=== PATIENT | male | born 1975 | race Caucasian/White ===

== ENCOUNTER → 2023-06-19 | Emergency (ER) | payer OTHER ==
[~2023-06-19] MED LIST: FOLIC ACID 5 MG/ML VIAL ONE; LABETALOL HCL 100 MG/20 ML ONE; NA CHLORIDE 0.9% 250 ML ONE; NICARDIPINE HCL 25 MG/10 ML IV ONE; TENECTEPLASE 50 MG/10 ML VIAL IV ONE
--- NOTE | 2023-06-19 21:04 | RAD REPORT ---
EXAM DESCRIPTION: CT - Ct Stroke Brain Wo Cont - 06/19/2023 8:58 pm CLINICAL HISTORY: Left-sided weakness COMPARISON: none TECHNIQUE: Computed axial tomography of the head was obtained. All CT scans are performed using dose optimization technique as appropriate and may include automated exposure control or mA/KV adjustment according to patient size. FINDINGS: An intracranial bleed is not seen . The ventricles are normal in caliber. No extra-axial fluid collection is noted. No significant hypodensity within the brain. 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 Mild to moderate chronic sinusitis IMPRESSION: 14 millimeter choroid plexus cyst left lateral ventricle No acute intracranial abnormality is seen. If patient's symptoms persist MRI of the brain would be r ecommended Dr Olmedo of the emergency room was notified at 8:40 p.m. June 19, 2023
--- NOTE | 2023-06-19 21:16 | RAD REPORT ---
EXAM DESCRIPTION: Fani Angio06/19/2023 8:43 pm CLINICAL HISTORY: Left-sided weakness. Facial droop TECHNIQUE: 100 cc Isovue [address] angiogram of the neck was obtained. 3D MIPS reconstruction performed. All CT scans are performed using dose optimization technique as appropriate and may include automated exposure control or mA/KV adjustment according to patient size. FINDINGS: No significant plaque within common carotid, internal carotid and external carotid arterie s bilaterally Vertebral arteries unremarkable No dissection is seen. No high-grade stenosis IMPRESSION: No significant abnormality is displayed [place] Mild stenosis 0 to 49 % Moderate stenosis 50-69% Severe stenosis 70-99%
[2023-06-19 21:19] LABS: Absolute Lymphocytes (CBC) 2.1 K/uL (0.7-4.9); Lymphocytes % 18.7 % (15.3-44.8); MCV 85.4 fL (80-100); MPV 9.3 fL (7.6-11.3); Platelets 254 thou/uL (152-406); RBC Red Blood Cell Count 5.15 M/uL (4.33-5.43)
--- NOTE | 2023-06-19 21:20 | RAD REPORT ---
EXAM DESCRIPTION: CTHead angio06/19/2023 8:43 pm CLINICAL HISTORY: Left-sided weakness. Facial droop COMPARISON: None TECHNIQUE: 100 cc Isovue [address] angiogram of the head was obtained. 3D MIPS reconstruction performed. All CT scans are performed using dose optimization technique as appropriate and may include automated exposure control or mA/KV adjustment according to patient size. FINDINGS: The basilar, anterior cerebral, middle cerebral and posterior cerebral arteries do not dem onstrate a significant stenosis origin posterior cerebral arteries An aneurysm is not seen No large vessel occlusion IMPRESSION: No significant abnormality is displayed
[2023-06-19 21:23] LABS: Protime INR 1.08
[2023-06-19 21:29] LABS: Potassium 3.3 mEq/L (3.5-5.1); Troponin High Sensitivity 11.4 pg/mL (<58.9)
--- NOTE | 2023-06-19 21:54 | EDPHYS ---
Physician Documentation [facility] Name: Joe Davis Age: 47 yrs Sex: Male : 1975 Arrival Date: 06/19/2023 Time: 20:24 Bed 2 Private MD: ED Physician Emmanuel Olmedo HPI: 06/19 20:28 This 47 yrs old Male presents to ER via Unassigned with complaints of weakness. rn 20:28 The patient presents to the emergency department with weakness of the left upper rn extremity, left lower extremity. Onset: The symptoms/episode began/occurred at 19:00. 21:47 Context: occurred at home, occurred while the patient was at rest. Associated signs and rn symptoms: Pertinent positives: This patient does not have any pertinent positives. Pertinent negatives: fever, headache, seizure, syncope, loss of vision. Severity of symptoms: At their worst the symptoms were moderate in the emergency department the symptoms are unchanged. The patient has not experienced similar symptoms in the past. Last known normal was 7 PM. Abruptly at 7 PM started to feel left-sided paralysis. Unable to move left arm or left leg at all. Left side of face also felt different for him. Does not take any medication but also has not been to a doctor. No head injury or trauma. States symptoms temporarily improved and then came back shortly after.. Historical: - Allergies: 21:20 No Known Allergies; km8 - Home Meds: 21:20 None [Active]; km8 - PMHx: 21:20 None; km8 - PSHx: 21:20 None; km8 - Immunization history:: Client reports having NOT received the Covid vaccine. Flu vaccine status is unknown. - Social history:: Smoking status: Patient reports the use of cigarette tobacco products, smokes one-half pack cigarettes per day. - Family history:: not pertinent. - Hospitalizations: : No recent hospitalization is reported. ROS: 21:47 Constitutional: Negative for fever, chills, and weight loss, Neck: Negative for injury, rn pain, and swelling, Cardiovascular: Negative for chest pain, palpitations, and edema, Respiratory: Negative for shortness of breath, cough, wheezing, and pleuritic chest pain, Abdomen/GI: Negative for abdominal pain, nausea, vomiting, diarrhea, and constipation, Back: Negative for injury and pain, MS/Extremity: Negative for injury and deformity, Skin: Negative for injury, rash, and discoloration, Neuro: Positive for left-sided hemiparesis Exam: 21:47 Constitutional: This is a well developed, well nourished patient who is awake, alert, rn and in no acute distress. Head/Face: Normocephalic, atraumatic. Eyes: Pupils equal round and reactive to light, extra-ocular motions intact. Cardiovascular: Tachycardic, regular. No pulse deficits. Respiratory: No increased work of breathing, no retractions or nasal flaring. Abdomen/GI: Soft, non-tender Skin: Warm, dry Neuro: Awake and alert, GCS 15, oriented to person, place, time, and situation. Left lower facial droop, mild. Complete paralysis of left upper extremity and left lower extremity. Sensory grossly intact. 23:03 ECG was reviewed by the Attending Physician. rn Vital Signs: 20:39 BP 207 / 129; Pulse 103; Resp 16; Pulse Ox 98% on R/A; km8 20:45 BP 200 / 116; Pulse 100; Pulse Ox 99% on R/A; km8 20:50 BP 191 / 106; Pulse 95; Pulse Ox 99% on R/A; km8 20:55 BP 178 / 108; Pulse 92; Pulse Ox 99% on R/A; km8 21:00 BP 164 / 97; Pulse 94; Pulse Ox 98% on R/A; km8 21:05 BP 170 / 101; Pulse 97; Pulse Ox 99% on R/A; km8 21:09 BP 179 / 103; Pulse 93; Pulse Ox 99% on R/A; km8 21:12 BP 179 / 103; Pulse 96; Pulse Ox 99% ; km8 21:15 BP 180 / 106; Pulse 99; Pulse Ox 99% on R/A; km8 21:18 BP 194 / 123; Pulse 101; Resp 16; Pulse Ox 98% on R/A; km8 21:21 BP 187 / 103; Pulse 101; Pulse Ox 99% on R/A; km8 21:27 BP 190 / 103; Pulse 115; Pulse Ox 99% on R/A; km8 21:33 BP 166 / 94; Pulse 97; Pulse Ox 99% on R/A; km8 21:38 BP 179 / 99; rv 21:42 BP 165 / 96; Pulse 99; Pulse Ox 99% on R/A; km8 21:50 BP 167 / 96; rn 21:52 BP 167 / 96; Pulse 96; Resp 16; Temp 98.6; Pulse Ox 98% on R/A; rv1 21:53 Weight 123.83 kg; Height 6 ft. 5 in. ; rv1 21:54 BP 157 / 94; Pulse 99; Pulse Ox 99% on R/A; km8 21:57 BP 167 / 97; Pulse 100; Pulse Ox 97% on R/A; km8 22:00 BP 160 / 95; Pulse 101; Pulse Ox 98% on R/A; km8 22:03 BP 154 / 96; Pulse 102; Pulse Ox 98% ; km8 22:24 BP 148 / 86; rn 22:25 BP 148 / 86; Pulse 100; Pulse Ox 97% ; km8 22:25 BP 148 / 86; Pulse 100; Pulse Ox 99% on R/A; km8 22:28 BP 150 / 91; Pulse 98; Pulse Ox 97% on R/A; km8 22:28 BP 150 / 91; Pulse 99; Pulse Ox 99% ; km8 22:34 BP 147 / 85; Pulse 98; Pulse Ox 96% on R/A; km8 22:39 BP 156 / 95; Pulse 97; Pulse Ox 97% on R/A; km8 22:42 BP 151 / 92; Pulse 103; Pulse Ox 100% ; km8 22:45 BP 144 / 88; Pulse 97; Pulse Ox 96% on R/A; km8 22:51 BP 155 / 93; Pulse 96; Pulse Ox 97% on R/A; km8 22:54 BP 149 / 95; Pulse 98; Pulse Ox 97% on R/A; km8 23:05 BP 161 / 97; Pulse 98; Pulse Ox 96% on R/A; km8 21:53 Body Mass Index 32.37 (123.83 kg, 195.58 cm) rv1 NIH Stroke Scale Scores: 20:26 NIHSS Score: 11 km8 20:27 NIHSS Score: 9 rn 20:50 NIHSS Score: 0 km8 20:58 NIHSS Score: 10 km8 21:24 NIHSS Score: 0 8 21:54 NIHSS Score: 2 rn 23:05 NIHSS Score: 10 8 23:20 NIHSS Score: 3 km8 [place] Coma Score: 20:26 Eye Response: spontaneous(4). Motor Response: obeys commands(6). Verbal Response: km8 oriented(5). Total: 15. MDM: 20:27 Patient medically screened. rn 20:40 Discussion of test interpretation with radiology: I had a discussion with internal sales engineer regarding a test interpretation. Spoke with Dr. Anguiano, no acute findings and CT head without contrast.. 20:51 ED course: Blood pressure initially elevated with systolic over 200, EMS administered rn 10 of labetalol prior to arrival with blood pressure improving to systolic 157. Upon return from CT patient's blood pressure spiked again to 207/129. Another 10 of labetalol given.. 21:00 ED course: Blood pressure after second dose of metoprolol was 191/106. Decision to use rn Enrike as 2 doses of labetalol have not brought him down to receive TNKase.. 21:10 ED course: Blood pressure finally came down to 164/97 on Cardene drip, TNKase rn administered at 2106.. 21:38 ED course: Patient has shown very improvement and mobility, canal left left arm and rn left leg off bed and hold for 5 seconds.. ED course: Facial droop is gone.. 21:52 Data reviewed: vital signs, nurses notes, lab test result(s), radiologic studies, CT rn scan, and as a result, I will admit patient. Consideration of Admission/Observation Patient was admitted/placed on observation. Escalation of care including admission/observation considered. Independent interpretation of the following test(s) in the Emergency Department CT Scan: My interpretation is CT head without contrast images negative for acute hemorrhage per my interpretation. Counseling: I had a detailed discussion with the patient and/or guardian regarding the historical points, exam findings, and any diagnostic results supporting the discharge/admit diagnosis, lab results, radiology results, the need for further work-up and treatment in the hospital, the need to transfer to another facility, for higher level of care, No ICU beds here. Response to treatment: the patient's symptoms have mildly improved after treatment, and as a result, I will admit patient. ED course: I personally spent 35 minutes engaged in work directly related to the individual patient's care. This does not include any time spent performing procedures. The patient has been deemed critically ill because of acute cerebral infarction requiring TNKase, uncontrolled hypertension requiring IV Cardene drip to manage and consultation as well as multiple discussions with patient and friends.. 21:54 ED course: NIH score from 9 to 2 following TNKase. rn 06/19 21:03 Order name: Basic Metabolic Panel; Complete Time: 21:37 EDMS / 21:03 Order name: Troponin High Sensitivity; Complete Time: 21:37 EDMS / 21:03 Order name: CBC with Automated Diff; Complete Time: 21:37 EDMS 06/19 21:04 Order name: Protime (+INR); Complete Time: 21:37 EDMS 12/15 21:04 Order name: PTT, Activated Partial Thromb; Complete Time: 21:37 EDMS / 20:38 Order name: Head angio; Complete Time: 21:38 EDMS / 20:38 Order name: Neck Angio; Complete Time: 21:38 EDMS 12/15 20:43 Order name: Ct Stroke Brain Wo Cont; Complete Time: 21:38 EDWA 06/19 20:27 Order name: EKG; Complete Time: 23:01 rn / 20:27 Order name: Accucheck; Complete Time: 21:40 rn / 20:27 Order name: Cardiac monitoring; Complete Time: 21:03 rn / 20:27 Order name: EKG - Nurse/Tech; Complete Time: 20:50 / 20:27 Order name: IV Saline Lock; Complete Time: 20:50 /15 20:27 Order name: Labs collected and sent; Complete Time: 20:50 / 20:27 Order name: NPO; Complete Time: 21:40 / 20:27 Order name: O2 Per Protocol; Complete Time: 20:50 / 20:27 Order name: O2 Sat Monitoring; Complete Time: 20:50 / 20:27 Order name: Stroke Swallow Screen; Complete Time: 22:11 rn EC:03 Rate is 99 beats/min. Rhythm is regular. QRS [place] is Normal. MN interval is normal. QRS rn interval is normal. QT interval is normal. No Q waves. T waves are Normal. No ST changes noted. Clinical impression: Normal ECG. Reviewed by me. Administered Medications: 20:50 Drug: Labetalol IV 10 mg IV at calculated rate once Route: IV; Rate: calculated rate; km8 Site: right forearm; 20:51 Follow up: IV Status: Completed infusion 21:00 Drug: Cardene IV 5 mg/hr IV at calculated rate continuous; 5mg/hr Route: IV; Rate: rv calculated rate; Site: left antecubital; 21:13 Follow up: Rate change 6 mg/hr km8 21:16 Follow up: Rate change 8 mg/hr km8 21:23 Follow up: Rate change 10 mg/hr km8 21:28 Follow up: Rate change 12 mg/hr km8 21:38 Follow up: BP 179 / 99; Rate change 15 mg/hr rv 22:25 Follow up: BP 148 / 86; Pulse 100 bpm; Pulse Ox 99% RA; Rate change 12 mg/hr km8 22:28 Follow up: BP 150 / 91; Pulse 99 bpm; Pulse Ox 99% ; Rate change 10 mg/hr km8 22:35 Follow up: Rate change 5 mg/hr km8 22:42 Follow up: BP 151 / 92; Pulse 103 bpm; Pulse Ox 100% ; Rate change 3 mg/hr km8 22:54 Follow up: BP 149 / 95; Pulse 98 bpm; Pulse Ox 97% RA; Rate change 2 mg/hr km8 23:14 Follow up: IV Status: Infusion continued upon transfer km8 21:06 Drug: TNK FOR STROKE - Tenecteplase IV 0.25 mg/kg IV at per protocol once; MAX km8 DOSE 25 mg, IVP over 5 seconds {Co-Signature: as6 (Ricardo Mendoza RN).} Route: IV; Rate: per protocol; Site: right forearm; 21:07 Follow up: IV Status: Completed infusion km 21:55 Drug: foLIC Acid IVPB 1 mg IVPB once Route: IVPB; Site: left antecubital; km8 22:07 Follow up: IV Status: Completed infusion Disposition Summary: 06/19/23 21:54 Transfer Ordered Notes: Transfer Location: [facility] rn Reason: Higher level of care rn Condition: Stable rn Problem: new rn Symptoms: have improved rn Accepting Physician: (06/19/23 23:20) 8 Diagnosis - Cerebral infarction, unspecified rn - Weakness rn - Facial weakness rn Forms: - Medication Reconciliation Form rn - SBAR form new grad rn time excluding procedures: 21:52 Critical care time: Bedside Care: 30 minutes, Consultation: 2 minutes, Family rn Intervention: 3 minutes. Total time: 35 minutes NIH Stroke Scale - NIH Stroke Score Date: 06/19/2023 Time: 20:26 Total Score = 11 10. Dysarthria (speech clarity - read or repeat words) - 0(Normal) 11. Extinction and Inattention (visual/tactile/auditory/spatial/personal) - 0(No abnormality) 1a. Level of Consciousness (LOC) - 0(Alert) 1b. Level of Consciousness (LOC) (Month \T\ Age) - 0(Both) 1c. LOC Commands (Open \T\ Closes Eyes/Dike Supervisor) - 0(Both) 2. Best Gaze (Lateral Gaze Paresis) - 0(Normal) 3. Visual Field Loss - 0(No visual loss) 4. Facial Palsy - 1(Minor Paralysis) 5a. Left Arm: Motor (10-second hold) - 4(No movement) 5b. Right Arm: Motor (10-second hold) - 0(No drift) 6a. Left Leg: Motor (5-second hold - always test supine) - 4(No movement) 6b. Right Leg: Motor (5-second hold - always test supine) - 0(No drift) 7. Limb Ataxia (finger/nose \T\ heel/teixeira - test with eyes open) - 2(Present in two limbs) 8. Sensory Loss (pinprick arms/legs/face) - 0(Normal) 9. Best Language: Aphasia (description/naming/reading) - 0(No aphasia) Initials: km8 NIH Stroke Scale - NIH Stroke Score Date: 06/19/2023 Time: 20:27 Total Score = 9 10. Dysarthria (speech clarity - read or repeat words) - 0(Normal) 11. Extinction and Inattention (visual/tactile/auditory/spatial/personal) - 0(No abnormality) 1a. Level of Consciousness (LOC) - 0(Alert) 1b. Level of Consciousness (LOC) (Month \T\ Age) - 0(Both) 1c. LOC Commands (Open \T\ Closes Eyes/Dike Supervisor) - 0(Both) 2. Best Gaze (Lateral Gaze Paresis) - 0(Normal) 3. Visual Field Loss - 0(No visual loss) 4. Facial Palsy - 1(Minor Paralysis) 5a. Left Arm: Motor (10-second hold) - 4(No movement) 5b. Right Arm: Motor (10-second hold) - 0(No drift) 6a. Left Leg: Motor (5-second hold - always test supine) - 4(No movement) 6b. Right Leg: Motor (5-second hold - always test supine) - 0(No drift) 7. Limb Ataxia (finger/nose \T\ heel/teixeira - test with eyes open) - 0(Absent) 8. Sensory Loss (pinprick arms/legs/face) - 0(Normal) 9. Best Language: Aphasia (description/naming/reading) - 0(No aphasia) Initials: rn NIH Stroke Scale - NIH Stroke Score Date: 06/19/2023 Time: 20:50 Total Score = 0 10. Dysarthria (speech clarity - read or repeat words) - 0(Normal) 11. Extinction and Inattention (visual/tactile/auditory/spatial/personal) - 0(No abnormality) 1a. Level of Consciousness (LOC) - 0(Alert) 1b. Level of Consciousness (LOC) (Month \T\ Age) - 0(Both) 1c. LOC Commands (Open \T\ Closes Eyes/Dike Supervisor) - 0(Both) 2. Best Gaze (Lateral Gaze Paresis) - 0(Normal) 3. Visual Field Loss - 0(No visual loss) 4. Facial Palsy - 0(Normal) 5a. Left Arm: Motor (10-second hold) - 0(No drift) 5b. Right Arm: Motor (10-second hold) - 0(No drift) 6a. Left Leg: Motor (5-second hold - always test supine) - 0(No drift) 6b. Right Leg: Motor (5-second hold - always test supine) - 0(No drift) 7. Limb Ataxia (finger/nose \T\ heel/teixeira - test with eyes open) - 0(Absent) 8. Sensory Loss (pinprick arms/legs/face) - 0(Normal) 9. Best Language: Aphasia (description/naming/reading) - 0(No aphasia) Initials: km NIH Stroke Scale - NIH Stroke Score Date: 06/19/2023 Time: 20:58 Total Score = 10 10. Dysarthria (speech clarity - read or repeat words) - 0(Normal) 11. Extinction and Inattention (visual/tactile/auditory/spatial/personal) 1a. Level of Consciousness (LOC) - 0(Alert) 1b. Level of Consciousness (LOC) (Month \T\ Age) - 0(Both) 1c. LOC Commands (Open \T\ Closes Eyes/Dike Supervisor) - 0(Both) 2. Best Gaze (Lateral Gaze Paresis) - 0(Normal) 3. Visual Field Loss - 0(No visual loss) 4. Facial Palsy - 0(Normal) 5a. Left Arm: Motor (10-second hold) - 4(No movement) 5b. Right Arm: Motor (10-second hold) - 0(No drift) 6a. Left Leg: Motor (5-second hold - always test supine) - 4(No movement) 6b. Right Leg: Motor (5-second hold - always test supine) - 0(No drift) 7. Limb Ataxia (finger/nose \T\ heel/teixeira - test with eyes open) - 2(Present in two limbs) 8. Sensory Loss (pinprick arms/legs/face) - 0(Normal) 9. Best Language: Aphasia (description/naming/reading) - 0(No aphasia) Initials: km8 NIH Stroke Scale - NIH Stroke Score Date: 06/19/2023 Time: 21:24 Total Score = 0 10. Dysarthria (speech clarity - read or repeat words) - 0(Normal) 11. Extinction and Inattention (visual/tactile/auditory/spatial/personal) - 0(No abnormality) 1a. Level of Consciousness (LOC) - 0(Alert) 1b. Level of Consciousness (LOC) (Month \T\ Age) - 0(Both) 1c. LOC Commands (Open \T\ Closes Eyes/Dike Supervisor) - 0(Both) 2. Best Gaze (Lateral Gaze Paresis) - 0(Normal) 3. Visual Field Loss - 0(No visual loss) 4. Facial Palsy - 0(Normal) 5a. Left Arm: Motor (10-second hold) - 0(No drift) 5b. Right Arm: Motor (10-second hold) - 0(No drift) 6a. Left Leg: Motor (5-second hold - always test supine) - 0(No drift) 6b. Right Leg: Motor (5-second hold - always test supine) - 0(No drift) 7. Limb Ataxia (finger/nose \T\ heel/teixeira - test with eyes open) - 0(Absent) 8. Sensory Loss (pinprick arms/legs/face) - 0(Normal) 9. Best Language: Aphasia (description/naming/reading) - 0(No aphasia) Initials: km8 NIH Stroke Scale - NIH Stroke Score Date: 06/19/2023 Time: 21:54 Total Score = 2 10. Dysarthria (speech clarity - read or repeat words) - 0(Normal) 11. Extinction and Inattention (visual/tactile/auditory/spatial/personal) - 0(No abnormality) 1a. Level of Consciousness (LOC) - 0(Alert) 1b. Level of Consciousness (LOC) (Month \T\ Age) - 0(Both) 1c. LOC Commands (Open \T\ Closes Eyes/Dike Supervisor) - 0(Both) 2. Best Gaze (Lateral Gaze Paresis) - 0(Normal) 3. Visual Field Loss - 0(No visual loss) 4. Facial Palsy - 0(Normal) 5a. Left Arm: Motor (10-second hold) - 1(Drift) 5b. Right Arm: Motor (10-second hold) - 0(No drift) 6a. Left Leg: Motor (5-second hold - always test supine) - 1(Drift) 6b. Right Leg: Motor (5-second hold - always test supine) - 0(No drift) 7. Limb Ataxia (finger/nose \T\ heel/teixeira - test with eyes open) - 0(Absent) 8. Sensory Loss (pinprick arms/legs/face) - 0(Normal) 9. Best Language: Aphasia (description/naming/reading) - 0(No aphasia) Initials: rn NIH Stroke Scale - NIH Stroke Score Date: 06/19/2023 Time: 23:05 Total Score = 10 10. Dysarthria (speech clarity - read or repeat words) - 0(Normal) 11. Extinction and Inattention (visual/tactile/auditory/spatial/personal) - 0(No abnormality) 1a. Level of Consciousness (LOC) - 0(Alert) 1b. Level of Consciousness (LOC) (Month \T\ Age) - 0(Both) 1c. LOC Commands (Open \T\ Closes Eyes/Dike Supervisor) - 0(Both) 2. Best Gaze (Lateral Gaze Paresis) - 0(Normal) 3. Visual Field Loss - 0(No visual loss) 4. Facial Palsy - 0(Normal) 5a. Left Arm: Motor (10-second hold) - 4(No movement) 5b. Right Arm: Motor (10-second hold) - 0(No drift) 6a. Left Leg: Motor (5-second hold - always test supine) - 4(No movement) 6b. Right Leg: Motor (5-second hold - always test supine) - 0(No drift) 7. Limb Ataxia (finger/nose \T\ heel/teixeira - test with eyes open) - 2(Present in two limbs) 8. Sensory Loss (pinprick arms/legs/face) - 0(Normal) 9. Best Language: Aphasia (description/naming/reading) - 0(No aphasia) Initials: km8 NIH Stroke Scale - NIH Stroke Score Date: 06/19/2023 Time: 23:20 Total Score = 3 10. Dysarthria (speech clarity - read or repeat words) - 0(Normal) 11. Extinction and Inattention (visual/tactile/auditory/spatial/personal) - 0(No abnormality) 1a. Level of Consciousness (LOC) - 0(Alert) 1b. Level of Consciousness (LOC) (Month \T\ Age) - 0(Both) 1c. LOC Commands (Open \T\ Closes Eyes/Dike Supervisor) - 0(Both) 2. Best Gaze (Lateral Gaze Paresis) - 0(Normal) 3. Visual Field Loss - 0(No visual loss) 4. Facial Palsy - 0(Normal) 5a. Left Arm: Motor (10-second hold) - 1(Drift) 5b. Right Arm: Motor (10-second hold) - 0(No drift) 6a. Left Leg: Motor (5-second hold - always test supine) - 0(No drift) 6b. Right Leg: Motor (5-second hold - always test supine) - 0(No drift) 7. Limb Ataxia (finger/nose \T\ heel/teixeira - test with eyes open) - 2(Present in two limbs) 8. Sensory Loss (pinprick arms/legs/face) - 0(Normal) 9. Best Language: Aphasia (description/naming/reading) - 0(No aphasia) Initials: km8 Signatures: Dispatcher [employer] EDEmmanuel Tavera MD MD rn Vicente, Ronaldo, RN Judith Navarro RN RN km8 Ricardo Mendoza RN as6 Corrections: (The following items were deleted from the chart) 23:07 23:01 Chest Single View+RAD.RAD.BRZ ordered. EDMS EDMS 23: 23:01 CT-STROKE BRAIN W/O CONTRAST+CT.RAD.BRZ ordered. EDMS EDMS 23: 23:02 Head Angio+CT.RAD.BRZ ordered. EDMS EDMS : 23:02 Neck Angio+CT.RAD.BRZ ordered. EDMS EDMS 23:20 21:54 rn km8
--- NOTE | 2023-06-19 21:54 | ER ---
Nurse's Notes [facility] Name: Joe Davis Age: 47 yrs Sex: Male : 1975 Arrival Date: 06/19/2023 Time: 20:24 Bed 2 Private MD: Diagnosis: Cerebral infarction, unspecified;Weakness;Facial weakness Presentation: 06/19 20:26 Chief complaint: EMS states: pt lost function to left arm and left leg starting at 1900 km8 then regained function but still had numbness at 1950, but lost motor function again at 2007; pt also noted to have left sided droop to mouth; denies vision issues, SANON, or CP. Coronavirus screen: Client denies travel out of the [place] in the last 14 days. Ebola Screen: No symptoms or risks identified at this time. Initial Sepsis Screen: Does the patient meet any 2 criteria? No. Patient's initial sepsis screen is negative. Does the patient have a suspected source of infection? No. Patient's initial sepsis screen is negative. Risk Assessment: Do you want to hurt yourself or someone else? Patient reports no desire to harm self or others. Onset of symptoms was June 19, 2023 at 19:00. 20:26 Method Of Arrival: EMS: [facility] km8 20:26 Acuity: ARIANNE 2 km8 20:26 Care prior to arrival: Medication(s) given: labetalol 10mg IVP IV initiated. 18 GA, in km8 the left antecubital area, Glucose check: 106. Triage Assessment: 20:26 General: Appears in no apparent distress. comfortable, Behavior is calm, cooperative, km8 appropriate for age. Pain: Denies pain. EENT: No signs and/or symptoms were reported regarding the EENT system. Neuro: Blanca Agitation-Sedation Scale (RASS): 0 - Alert and Calm Level of Consciousness is awake, alert, obeys commands, Oriented to person, place, time, situation, Weakness in left arm(s) leg(s) Speech is normal, Facial droop on left, Pupils are PERRLA, Numbness in left arm and left leg. Cardiovascular: Denies chest pain, shortness of breath, Capillary refill < 3 seconds Patient's skin is warm and dry. Respiratory: Airway is patent Respiratory effort is even, unlabored, Respiratory pattern is regular, symmetrical. GI: No signs and/or symptoms were reported involving the gastrointestinal system. : No signs and/or symptoms were reported regarding the genitourinary system. Derm: No signs and/or symptoms reported regarding the dermatologic system. Skin is intact, Skin is dry, Skin is pink, warm \T\ dry. normal, Skin temperature is warm. Musculoskeletal: Circulation, motion, and sensation intact. Range of motion: limited in left arm and left leg Reports weakness in left arm and left leg numbness in left arm and left leg. Historical: - Allergies: 21:20 No Known Allergies; km8 - Home Meds: 21:20 None [Active]; km8 - PMHx: 21:20 None; km8 - PSHx: 21:20 None; km8 - Immunization history:: Client reports having NOT received the Covid vaccine. Flu vaccine status is unknown. - Social history:: Smoking status: Patient reports the use of cigarette tobacco products, smokes one-half pack cigarettes per day. - Family history:: not pertinent. - Hospitalizations: : No recent hospitalization is reported. Screenin:26 [facility] ED Fall Risk Assessment (Adult) History of falling in the last 3 months, km8 including since admission No falls in past 3 months (0 pts) Confusion or Disorientation No (0 pts) Intoxicated or Sedated No (0 pts) Impaired Gait No (0 pts) Mobility Assist Device Used No (0 pt) Altered Elimination No (0 pt) Score/Fall Risk Level 0 - 2 = Low Risk Oriented to surroundings, Maintained a safe environment, Educated pt \T\ family on fall prevention, incl call for assistance when getting out of bed, Assessed \T\ reinforced patient's understanding of fall precautions. Abuse screen: Denies threats or abuse. Denies injuries from another. Nutritional screening: No deficits noted. Tuberculosis screening: No symptoms or risk factors identified. 20:26 VAN Screening: Arm Drift: Flaccid or no effort against gravity. Visual Disturbance: No km8 visual disturbance noted. Aphasia: No aphasia noted. Neglect: No neglect noted. 22:02 [place] Swallow Protocol Exclusion Criteria: Unable to remain alert for testing: No NPO km8 for medical/surgical reason by provider order No Tracheostomy tube present No No thin liquids due to preexisting dysphagia/baseline modified diet thickened liquids No Exclusion Criteria Result: Proceed Brief Cognitive Screen What is your name? Normal, Where are you right now? Normal, What year is it? Normal. Oral Mechanism Examination Facial Symmetry: Normal, Motion: Normal, Lip Closure: Normal, Oral Mechanism Result: Normal. 3 oz Water Swallow Challenge: Pt able to drink all water without stopping, coughing, choking or throat clearing: Yes Result: PASS. Assessment: 20:26 General: see triage notes/assessment. Pain: Denies pain. 8 Vital Signs: 20:39 BP 207 / 129; Pulse 103; Resp 16; Pulse Ox 98% on R/A; km8 20:45 BP 200 / 116; Pulse 100; Pulse Ox 99% on R/A; km8 20:50 BP 191 / 106; Pulse 95; Pulse Ox 99% on R/A; km8 20:55 BP 178 / 108; Pulse 92; Pulse Ox 99% on R/A; km8 21:00 BP 164 / 97; Pulse 94; Pulse Ox 98% on R/A; km8 21:05 BP 170 / 101; Pulse 97; Pulse Ox 99% on R/A; km8 21:09 BP 179 / 103; Pulse 93; Pulse Ox 99% on R/A; km8 21:12 BP 179 / 103; Pulse 96; Pulse Ox 99% ; km8 21:15 BP 180 / 106; Pulse 99; Pulse Ox 99% on R/A; km8 21:18 BP 194 / 123; Pulse 101; Resp 16; Pulse Ox 98% on R/A; km8 21:21 BP 187 / 103; Pulse 101; Pulse Ox 99% on R/A; km8 21:27 BP 190 / 103; Pulse 115; Pulse Ox 99% on R/A; km8 21:33 BP 166 / 94; Pulse 97; Pulse Ox 99% on R/A; km8 21:38 BP 179 / 99; rv 21:42 BP 165 / 96; Pulse 99; Pulse Ox 99% on R/A; km8 21:50 BP 167 / 96; rn 21:52 BP 167 / 96; Pulse 96; Resp 16; Temp 98.6; Pulse Ox 98% on R/A; rv1 21:53 Weight 123.83 kg; Height 6 ft. 5 in. ; rv1 21:54 BP 157 / 94; Pulse 99; Pulse Ox 99% on R/A; km8 21:57 BP 167 / 97; Pulse 100; Pulse Ox 97% on R/A; km8 22:00 BP 160 / 95; Pulse 101; Pulse Ox 98% on R/A; km8 22:03 BP 154 / 96; Pulse 102; Pulse Ox 98% ; km8 22:24 BP 148 / 86; rn 22:25 BP 148 / 86; Pulse 100; Pulse Ox 97% ; km8 22:25 BP 148 / 86; Pulse 100; Pulse Ox 99% on R/A; km8 22:28 BP 150 / 91; Pulse 98; Pulse Ox 97% on R/A; km8 22:28 BP 150 / 91; Pulse 99; Pulse Ox 99% ; km8 22:34 BP 147 / 85; Pulse 98; Pulse Ox 96% on R/A; km8 22:39 BP 156 / 95; Pulse 97; Pulse Ox 97% on R/A; km8 22:42 BP 151 / 92; Pulse 103; Pulse Ox 100% ; km8 22:45 BP 144 / 88; Pulse 97; Pulse Ox 96% on R/A; km8 22:51 BP 155 / 93; Pulse 96; Pulse Ox 97% on R/A; km8 22:54 BP 149 / 95; Pulse 98; Pulse Ox 97% on R/A; km8 23:05 BP 161 / 97; Pulse 98; Pulse Ox 96% on R/A; km8 21:53 Body Mass Index 32.37 (123.83 kg, 195.58 cm) rv1 Shabnam Coma Score: 20:26 Eye Response: spontaneous(4). Motor Response: obeys commands(6). Verbal Response: km8 oriented(5). Total: 15. NIH Stroke Scale Scores: 20:26 NIHSS Score: 11 km8 20:27 NIHSS Score: 9 rn 20:50 NIHSS Score: 0 km8 20:58 NIHSS Score: 10 km8 21:24 NIHSS Score: 0 km8 21:54 NIHSS Score: 2 rn 23:05 NIHSS Score: 10 km8 23:20 NIHSS Score: 3 km8 ED Course: 20:26 Patient arrived in ED. rn 20:26 Maintain EMS IV. Dressing intact. Good blood return noted. Site clean \T\ dry. km8 20:26 Patient has correct armband on for positive identification. Placed in gown. Bed in low km8 position. Call light in reach. Side rails up X2. 20:26 Arm band placed on right wrist. km8 20:27 Emmanuel Olmedo MD is Attending Physician. rn 20:39 Client placed on continuous cardiac and pulse oximetry monitoring. NIBP monitoring km8 applied. 20:43 Ct Stroke Brain Wo Cont In Process Unspecified. EDMS 20:45 Head angio In Process Unspecified. EDMS 20:45 Neck Angio In Process Unspecified. EDMS 20:45 Provided Education on: TNK consent and teaching. km8 20:47 Inserted saline lock: 18 gauge in right forearm, using aseptic technique. Blood km8 collected. 21:20 Triage completed. km8 21:46 Initiated transfer with Chris at [facility]. rv1 21:53 IV is swollen, 18 gauge right forearm; d/c'd catheter tip intact, pressure dressing km8 applied. 21:55 Inserted saline lock: 20 gauge in right hand, using aseptic technique. km8 22:[address] Billingsley to [address] 18. rv1 22:16 No provider procedures requiring assistance completed. km8 23:20 Patient transferred, IV remains in place. km8 Administered Medications: 20:50 Drug: Labetalol IV 10 mg IV at calculated rate once Route: IV; Rate: calculated rate; km8 Site: right forearm; 20:51 Follow up: IV Status: Completed infusion km8 21:00 Drug: Cardene IV 5 mg/hr IV at calculated rate continuous; 5mg/hr Route: IV; Rate: rv calculated rate; Site: left antecubital; 21:13 Follow up: Rate change 6 mg/hr km8 21:16 Follow up: Rate change 8 mg/hr km8 21:23 Follow up: Rate change 10 mg/hr km8 21:28 Follow up: Rate change 12 mg/hr km8 21:38 Follow up: BP 179 / 99; Rate change 15 mg/hr rv 22:25 Follow up: BP 148 / 86; Pulse 100 bpm; Pulse Ox 99% RA; Rate change 12 mg/hr km8 22:28 Follow up: BP 150 / 91; Pulse 99 bpm; Pulse Ox 99% ; Rate change 10 mg/hr km8 22:35 Follow up: Rate change 5 mg/hr km8 22:42 Follow up: BP 151 / 92; Pulse 103 bpm; Pulse Ox 100% ; Rate change 3 mg/hr km8 22:54 Follow up: BP 149 / 95; Pulse 98 bpm; Pulse Ox 97% RA; Rate change 2 mg/hr km8 23:14 Follow up: IV Status: Infusion continued upon transfer km8 21:06 Drug: TNK FOR STROKE - Tenecteplase IV 0.25 mg/kg IV at per protocol once; MAX km8 DOSE 25 mg, IVP over 5 seconds {Co-Signature: as6 (Ricardo Mendoza RN).} Route: IV; Rate: per protocol; Site: right forearm; 21:07 Follow up: IV Status: Completed infusion km8 21:55 Drug: foLIC Acid IVPB 1 mg IVPB once Route: IVPB; Site: left antecubital; km8 22:07 Follow up: IV Status: Completed infusion km8 Medication: 20:26 VIS not applicable for this client. km8 Outcome: 21:54 ER care complete, transfer ordered by rn 23:20 Transferred by ground EMS to [facility], Transfer form completed. [facility] 23:20 Condition: stable 23:20 Discharge instructions given to patient, Instructed on follow up and referral plans. Demonstrated understanding of instructions, 23:20 Patient left the ED. km8 NIH Stroke Scale - NIH Stroke Score Date: 06/19/2023 Time: 20:26 Total Score = 11 10. Dysarthria (speech clarity - read or repeat words) - 0(Normal) 11. Extinction and Inattention (visual/tactile/auditory/spatial/personal) - 0(No abnormality) 1a. Level of Consciousness (LOC) - 0(Alert) 1b. Level of Consciousness (LOC) (Month \T\ Age) - 0(Both) 1c. LOC Commands (Open \T\ Closes Eyes/Clinical Trials Specialist) - 0(Both) 2. Best Gaze (Lateral Gaze Paresis) - 0(Normal) 3. Visual Field Loss - 0(No visual loss) 4. Facial Palsy - 1(Minor Paralysis) 5a. Left Arm: Motor (10-second hold) - 4(No movement) 5b. Right Arm: Motor (10-second hold) - 0(No drift) 6a. Left Leg: Motor (5-second hold - always test supine) - 4(No movement) 6b. Right Leg: Motor (5-second hold - always test supine) - 0(No drift) 7. Limb Ataxia (finger/nose \T\ heel/teixeira - test with eyes open) - 2(Present in two limbs) 8. Sensory Loss (pinprick arms/legs/face) - 0(Normal) 9. Best Language: Aphasia (description/naming/reading) - 0(No aphasia) Initials: km8 NIH Stroke Scale - NIH Stroke Score Date: 06/19/2023 Time: 20:27 Total Score = 9 10. Dysarthria (speech clarity - read or repeat words) - 0(Normal) 11. Extinction and Inattention (visual/tactile/auditory/spatial/personal) - 0(No abnormality) 1a. Level of Consciousness (LOC) - 0(Alert) 1b. Level of Consciousness (LOC) (Month \T\ Age) - 0(Both) 1c. LOC Commands (Open \T\ Closes Eyes/Clinical Trials Specialist) - 0(Both) 2. Best Gaze (Lateral Gaze Paresis) - 0(Normal) 3. Visual Field Loss - 0(No visual loss) 4. Facial Palsy - 1(Minor Paralysis) 5a. Left Arm: Motor (10-second hold) - 4(No movement) 5b. Right Arm: Motor (10-second hold) - 0(No drift) 6a. Left Leg: Motor (5-second hold - always test supine) - 4(No movement) 6b. Right Leg: Motor (5-second hold - always test supine) - 0(No drift) 7. Limb Ataxia (finger/nose \T\ heel/teixeira - test with eyes open) - 0(Absent) 8. Sensory Loss (pinprick arms/legs/face) - 0(Normal) 9. Best Language: Aphasia (description/naming/reading) - 0(No aphasia) Initials: rn NIH Stroke Scale - NIH Stroke Score Date: 06/19/2023 Time: 20:50 Total Score = 0 10. Dysarthria (speech clarity - read or repeat words) - 0(Normal) 11. Extinction and Inattention (visual/tactile/auditory/spatial/personal) - 0(No abnormality) 1a. Level of Consciousness (LOC) - 0(Alert) 1b. Level of Consciousness (LOC) (Month \T\ Age) - 0(Both) 1c. LOC Commands (Open \T\ Closes Eyes/Clinical Trials Specialist) - 0(Both) 2. Best Gaze (Lateral Gaze Paresis) - 0(Normal) 3. Visual Field Loss - 0(No visual loss) 4. Facial Palsy - 0(Normal) 5a. Left Arm: Motor (10-second hold) - 0(No drift) 5b. Right Arm: Motor (10-second hold) - 0(No drift) 6a. Left Leg: Motor (5-second hold - always test supine) - 0(No drift) 6b. Right Leg: Motor (5-second hold - always test supine) - 0(No drift) 7. Limb Ataxia (finger/nose \T\ heel/teixeira - test with eyes open) - 0(Absent) 8. Sensory Loss (pinprick arms/legs/face) - 0(Normal) 9. Best Language: Aphasia (description/naming/reading) - 0(No aphasia) Initials: km8 NIH Stroke Scale - NIH Stroke Score Date: 06/19/2023 Time: 20:58 Total Score = 10 10. Dysarthria (speech clarity - read or repeat words) - 0(Normal) 11. Extinction and Inattention (visual/tactile/auditory/spatial/personal) 1a. Level of Consciousness (LOC) - 0(Alert) 1b. Level of Consciousness (LOC) (Month \T\ Age) - 0(Both) 1c. LOC Commands (Open \T\ Closes Eyes/Clinical Trials Specialist) - 0(Both) 2. Best Gaze (Lateral Gaze Paresis) - 0(Normal) 3. Visual Field Loss - 0(No visual loss) 4. Facial Palsy - 0(Normal) 5a. Left Arm: Motor (10-second hold) - 4(No movement) 5b. Right Arm: Motor (10-second hold) - 0(No drift) 6a. Left Leg: Motor (5-second hold - always test supine) - 4(No movement) 6b. Right Leg: Motor (5-second hold - always test supine) - 0(No drift) 7. Limb Ataxia (finger/nose \T\ heel/teixeira - test with eyes open) - 2(Present in two limbs) 8. Sensory Loss (pinprick arms/legs/face) - 0(Normal) 9. Best Language: Aphasia (description/naming/reading) - 0(No aphasia) Initials: [facility] NIH Stroke Scale - NIH Stroke Score Date: 06/19/2023 Time: 21:24 Total Score = 0 10. Dysarthria (speech clarity - read or repeat words) - 0(Normal) 11. Extinction and Inattention (visual/tactile/auditory/spatial/personal) - 0(No abnormality) 1a. Level of Consciousness (LOC) - 0(Alert) 1b. Level of Consciousness (LOC) (Month \T\ Age) - 0(Both) 1c. LOC Commands (Open \T\ Closes Eyes/Clinical Trials Specialist) - 0(Both) 2. Best Gaze (Lateral Gaze Paresis) - 0(Normal) 3. Visual Field Loss - 0(No visual loss) 4. Facial Palsy - 0(Normal) 5a. Left Arm: Motor (10-second hold) - 0(No drift) 5b. Right Arm: Motor (10-second hold) - 0(No drift) 6a. Left Leg: Motor (5-second hold - always test supine) - 0(No drift) 6b. Right Leg: Motor (5-second hold - always test supine) - 0(No drift) 7. Limb Ataxia (finger/nose \T\ heel/teixeira - test with eyes open) - 0(Absent) 8. Sensory Loss (pinprick arms/legs/face) - 0(Normal) 9. Best Language: Aphasia (description/naming/reading) - 0(No aphasia) Initials: [facility] NIH Stroke Scale - NIH Stroke Score Date: 06/19/2023 Time: 21:54 Total Score = 2 10. Dysarthria (speech clarity - read or repeat words) - 0(Normal) 11. Extinction and Inattention (visual/tactile/auditory/spatial/personal) - 0(No abnormality) 1a. Level of Consciousness (LOC) - 0(Alert) 1b. Level of Consciousness (LOC) (Month \T\ Age) - 0(Both) 1c. LOC Commands (Open \T\ Closes Eyes/Clinical Trials Specialist) - 0(Both) 2. Best Gaze (Lateral Gaze Paresis) - 0(Normal) 3. Visual Field Loss - 0(No visual loss) 4. Facial Palsy - 0(Normal) 5a. Left Arm: Motor (10-second hold) - 1(Drift) 5b. Right Arm: Motor (10-second hold) - 0(No drift) 6a. Left Leg: Motor (5-second hold - always test supine) - 1(Drift) 6b. Right Leg: Motor (5-second hold - always test supine) - 0(No drift) 7. Limb Ataxia (finger/nose \T\ heel/teixeira - test with eyes open) - 0(Absent) 8. Sensory Loss (pinprick arms/legs/face) - 0(Normal) 9. Best Language: Aphasia (description/naming/reading) - 0(No aphasia) Initials: rn NIH Stroke Scale - NIH Stroke Score Date: 06/19/2023 Time: 23:05 Total Score = 10 10. Dysarthria (speech clarity - read or repeat words) - 0(Normal) 11. Extinction and Inattention (visual/tactile/auditory/spatial/personal) - 0(No abnormality) 1a. Level of Consciousness (LOC) - 0(Alert) 1b. Level of Consciousness (LOC) (Month \T\ Age) - 0(Both) 1c. LOC Commands (Open \T\ Closes Eyes/Clinical Trials Specialist) - 0(Both) 2. Best Gaze (Lateral Gaze Paresis) - 0(Normal) 3. Visual Field Loss - 0(No visual loss) 4. Facial Palsy - 0(Normal) 5a. Left Arm: Motor (10-second hold) - 4(No movement) 5b. Right Arm: Motor (10-second hold) - 0(No drift) 6a. Left Leg: Motor (5-second hold - always test supine) - 4(No movement) 6b. Right Leg: Motor (5-second hold - always test supine) - 0(No drift) 7. Limb Ataxia (finger/nose \T\ heel/teixeira - test with eyes open) - 2(Present in two limbs) 8. Sensory Loss (pinprick arms/legs/face) - 0(Normal) 9. Best Language: Aphasia (description/naming/reading) - 0(No aphasia) Initials: km8 NIH Stroke Scale - NIH Stroke Score Date: 06/19/2023 Time: 23:20 Total Score = 3 10. Dysarthria (speech clarity - read or repeat words) - 0(Normal) 11. Extinction and Inattention (visual/tactile/auditory/spatial/personal) - 0(No abnormality) 1a. Level of Consciousness (LOC) - 0(Alert) 1b. Level of Consciousness (LOC) (Month \T\ Age) - 0(Both) 1c. LOC Commands (Open \T\ Closes Eyes/Clinical Trials Specialist) - 0(Both) 2. Best Gaze (Lateral Gaze Paresis) - 0(Normal) 3. Visual Field Loss - 0(No visual loss) 4. Facial Palsy - 0(Normal) 5a. Left Arm: Motor (10-second hold) - 1(Drift) 5b. Right Arm: Motor (10-second hold) - 0(No drift) 6a. Left Leg: Motor (5-second hold - always test supine) - 0(No drift) 6b. Right Leg: Motor (5-second hold - always test supine) - 0(No drift) 7. Limb Ataxia (finger/nose \T\ heel/teixeira - test with eyes open) - 2(Present in two limbs) 8. Sensory Loss (pinprick arms/legs/face) - 0(Normal) 9. Best Language: Aphasia (description/naming/reading) - 0(No aphasia) Initials: [facility] Signatures: Dispatcher [employer] EDMS Emmanuel Olmedo MD MD rn Vicente, Ronaldo, RN RN Daxa Guido [facility] Judith Moscoso RN RN [facility] Ricardo Mendoza RN as6 Corrections: (The following items were deleted from the chart) 21:57 21:52 BP 167 / 96; Pulse 96bpm; Resp 16bpm; Pulse Ox 98% RA; [facility] rv 22:43 22:28 BP 150 / 91; Resp 98bpm; Pulse Ox 97% RA; [place] [id number] 23:16 22:06 TNK FOR STROKE - Tenecteplase IV 25 mg IV at per protocol in right [facility] forearm [facility] 23:52 20:26 NIHSS Score: 10 [place] [id number] 23:52 20:50 NIHSS Score: 10 [place] [id number] 23:52 20:26 NIHSS Score: 10 [place] [id number] 23:52 20:58 NIHSS Score: 1 [place] [id number] 23:52 20:50 NIHSS Score: 1 [place] [id number] 23:52 23:41 NIHSS Score: 0 [place] [id number] 23:52 20:58 NIHSS Score: 9 [place] [id number] 23:52 23:41 NIHSS Score: 9 8 km8 06/20 00:42 00:39 IV is swollen, 18 gauge right forearm; d/c'd catheter tip intact, km8 pressure dressing applied. km8
[2023-06-20 03:18] VITALS: TEMP 98.6
[2023-06-20 03:28] VITALS: BP 149/95; O2SAT 97
--- NOTE | 2023-06-22 12:32 | EKG ---
Test Date: 2023-06-19 Test Time: 20:47:52 Scraper Operator: ADI MEASUREMENT RESULTS: Intervals: Rate: 99 OH: 198 QRSD: 106 QT: 350 QTc: 449 [place]: P: 50 OH: 198 QRS: -23 T: 63 INTERPRETIVE STATEMENTS: Normal sinus rhythm Normal ECG No previous ECG available for comparison Electronically Signed On 06-22-23 12:27:19 MAINTENANCE FITTER by Sebastian Moyer
== END ==
LOC: ER 20:24
DX: I63.9 Cerebral infarction, unspecified (principal); R53.1 Weakness; R29.711 NIHSS score 11; F17.210 Nicotine dependence, cigarettes, uncomplicated; Z28.310 Unvaccinated for COVID-19
CPT/HCPCS: 92977; 85025; 80048; 36415; 85610; 82565; 85730; 84484; 70496; 70498; 70450; 99291; Q9967; J3101; J7050; 93005